=== PATIENT | female | born 1985 | race Caucasian/White ===

== ENCOUNTER 2024-01-15 09:30 | Day surgery (SDC) | payer OTHER ==
[~2024-01-15] VITALS: Ht 175.3 cm; Wt 52.7 kg
[~2024-01-15 09:30] MED LIST: Indocyanine Green 12.5 MG in Water For Injection,Sterile 2.5 ML IV SCH; LR 1,000 ML IV SCH; Meclizine 25 MG TAB PO SCH; Metoclopramide 10 MG TAB PO SCH; Scopolamine 1 MG Delivered 3-Day PATCH TD SCH
[2024-01-15] MEDS ORDERED: AMOXICILLIN 8751 TAB PO (09:40)
[2024-01-15] MEDS ORDERED: Lidocaine PF 2% (20 MG/ML) 5 ML VIAL ONE (09:42)
[2024-01-15] MEDS ORDERED: Rocuronium 50 MG/5 ML Multi-Dose VIAL ONE (09:42)
[2024-01-15] MEDS ORDERED: fentaNYL 50 MCG/ML 5 ML VIAL ONE (09:42)
[2024-01-15] MEDS ORDERED: Ondansetron 4 MG/2 ML VIAL ONE (09:42)
[2024-01-15 10:10] LABS: BASO # 0.1 K/mm3 (0.0-0.2); BASO % 0.7 % (0.0-2.0); EOS # 0.3 K/mm3 (0.0-0.7); EOS % 3.6 % (0.0-4.0); GRAN # 5.5 K/mm3 (1.4-6.5); GRAN % 64.3 % (42.2-75.2); HEMATOCRIT 38.1 % (37.0-47.0); LYMPH # 2.1 K/mm3 (1.2-3.4); LYMPH % 25.1 % (20.0-51.0); MEAN CELL VOLUME 97 fl (80.0-100.0); MEAN CORPUSCULAR HEMOGLOBIN 33 pg (27-31); MEAN CORPUSCULAR HGB CONC 34 g/dl (33.0-37.0); MEAN PLATELET VOLUME 9.8 fl (7.4-10.4); MONO # 0.5 K/mm3 (0.1-0.6); MONO % 5.9 % (1.7-9.3); PLATELET COUNT 433 K/mm3 (130-400); RED BLOOD COUNT 3.91 M/mm3 (4.10-5.30); REDCELL DISTRIBUTION WIDTH-CV 13.1 % (11.5-14.5)
[2024-01-15 10:20] VITALS: BP 124/70; PULSE 65; TEMP 98.1
[2024-01-15 10:25] LABS: ALBUMIN 3.5 g/dL (3.5-5.0); BILIRUBIN,TOTAL 0.2 mg/dL (0.2-1.2); CALCIUM 8.9 mg/dL (8.4-10.2); CREATININE, serum 0.77 mg/dL (0.57-1.11); POTASSIUM 4.1 mEq/L (3.5-4.5); TOTAL PROTEIN 6.6 g/dl (6.2-8.1)
[2024-01-15] MEDS ORDERED: MOTRIN 600600 MG/TAB PO (11:03)
[2024-01-15] MEDS ORDERED: NORCO 325 MG-51 TAB PO (11:03)
[2024-01-15] MEDS ORDERED: Topical Skin Adhesive 1 EACH (1 ML) TOP ONE (11:41)
[2024-01-15] MEDS ORDERED: NS 10 ML VIAL ICA ONE (11:41)
[2024-01-15] MEDS ORDERED: Iohexol 350 - 100 ML VIAL BILE DUCT ONE (11:41)
[2024-01-15] MEDS ORDERED: HYDROmorphone 1 MG/1 ML SYRINGE [PACU/SDC ONLY] IV PRN (11:45)
[2024-01-15] MEDS ORDERED: fentaNYL 50 MCG/ML 1 ML SYRINGE/VIAL [PACU/SDC ONLY] IV PRN (11:45)
[2024-01-15] MEDS ORDERED: Ondansetron 4 MG/2 ML VIAL IV PRN ×2 (11:45→13:00)
[2024-01-15] MEDS ORDERED: Labetalol 100 MG/20 ML Multi-Dose VIAL ONE (11:51)
[2024-01-15] MEDS ORDERED: Ibuprofen 600 MG TAB PO PRN (13:00)
[2024-01-15 13:30] VITALS: BP 137/90; PULSE 49; TEMP 97.2
[2024-01-15 13:45] VITALS: BP 137/85; PULSE 51
[2024-01-15 14:00] VITALS: BP 119/76; PULSE 61
--- NOTE | 2024-01-15 14:44 | NUR ---
1325 Received report from Carola Lopez RN, PACU . 1335 Patient returned to [facility]. Patient is alert and answers questions appropriately. Breathing even and unlabored. Incision site, dry and intact. 1335 Patient given coffee and chocolate pudding for a PO challenge. Tolerated well. 1417 Physician discharge instructions and printed patient educational materials reviewed with the patient and her . Questions invited and answered. 1430 Patient to lobby via wheelchair for a ride home with in POV.
== END 2024-01-15 14:30 | disposition home or self-care (01) ==
LOC: SDCO 09:30
PROVIDERS: Surgery
DX: K80.10 Calculus of gallbladder with chronic cholecystitis without obstruction (principal); K82.8 Other specified diseases of gallbladder; F17.210 Nicotine dependence, cigarettes, uncomplicated; Z87.19 Personal history of other diseases of the digestive system; Z98.890 Other specified postprocedural states
CPT/HCPCS: J0690; J1920; J2405; J2704; J3010; J7120; Q9967